=== PATIENT | male | born 1970 | race African-American/Black ===

== ENCOUNTER 2019-07-18 08:49 | Day surgery (SDC) | payer BC ==
[2019-07-18] MEDS ORDERED: NACL 0.9% 1000 ML 1,000 ML ONE (10:03)
[2019-07-18] MEDS ORDERED: VERSED ONE (10:20)
[2019-07-18] MEDS ORDERED: DIPRIVAN 10 MG/ML IV ONE (10:20)
--- NOTE | 2019-07-18 10:20 | History and Physical Report ---
HISTORY OF PRESENT ILLNESS: This is a 48-year-old [place] gentleman with no significant past medical history. He recently had been a smoker until about a year ago. No history of alcohol use. He had been having some atypical chest pain that had prompted him to go to the ER. The patient's cardiac workup in the ER was essentially unremarkable and he was referred for possible endoscopy to see whether he had any associated esophagitis, gastritis or possible peptic ulcer disease. ALLERGIES: He has no known allergies. SOCIAL HISTORY: Significant for smoking until about a year ago. No history of alcohol use. No cardiac issues. No flu shots. MEDICATIONS: Omeprazole. PHYSICAL EXAMINATION: VITAL SIGNS: He is afebrile. Blood pressure 144/86, pulse is 67, height is 5 feet 4 inches, weighs 143 pounds. HEENT: Shows no JVD. LUNGS: Clear to auscultation. CARDIOVASCULAR: Normal. ABDOMEN: Shows some epigastric tenderness. EXTREMITIES: No pedal edema. NEUROLOGIC: The patient is otherwise alert and oriented. ASSESSMENT: Esophagitis and GERD symptoms, possible peptic ulcer disease. PLAN: To continue treatment with PPI and to do an EGD at [facility] on 07/18/2019. JOB# [id number] FLACO/XIAO
--- NOTE | 2019-07-18 10:41 | Anesthesia Day of Surgery ---
Anesthesia Day of Surgery - Day of Surgery Patient Examined: Yes Patient H&P Reviewed: Yes Patient is NPO: Yes Beta Blockers: No
--- NOTE | 2019-07-18 10:42 | Anesthesia Consultation ---
Anesthesia Consult and Med Hx Date of service: 07/18/19 - Airway Anesthetic Teeth Evaluation: Good ROM Head & Neck: Adequate Mental/Hyoid Distance: Adequate Mallampati Class: Class III Intubation Access Assessment: Good - Pulmonary Exam CTA: No - Cardiac Exam Cardiac Exam: RRR - Pre-Operative Health Status ASA Pre-Surgery Classification: ASA1 Proposed Anesthetic Plan: MAC
--- NOTE | 2019-07-18 10:43 | Procedure Note ---
Date of procedure: 07/18/19 Pre-op diagnosis: Dyspepsia/GERD Post-op diagnosis: other (Mild to Moderate Erosive Esophagitis/Gastritis/Duodenitis/Early, Duodenal Ulcer) Procedure: EGD with Biopsy Anesthesia: MINH Surgeon: OLIMPIA FERRARO Estimated blood loss: minimal Pathology: list Specimen disposition: to lab Condition: stable Disposition: same day (Treat with PPI and Baclofen and have patient avoid aspirin and NSAID and anticoagulants for 4 days and follow up in 1 to 2 weeks ([phone]).)
--- NOTE | 2019-07-18 10:53 | Operative Report ---
PROCEDURE: Esophagogastroduodenoscopy with biopsy. INDICATIONS: This is a 48-year-old gentleman, who originally from [place], who had been a smoker until about a year ago, denies any history of alcohol use, who had been having some dyspeptic pain and some atypical chest pain that had prompted him to go to the ER. His cardiac workup was unremarkable. He was suggested that he have an EGD done for further assessment. EGD was done at [facility] with MAC anesthesia after getting informed consent. DESCRIPTION OF PROCEDURE: Instrument was passed through the hypopharynx into the esophagus, which showed mild to moderate distal erosive esophagitis. Stomach showed gastritis and gastric erosion pronounced in the antrum as well as in the gastric body. Photo documentation and biopsy was obtained to make sure that the patient did not have any associated H. pylori gastritis. The pylorus was patent. The duodenum showed duodenitis and beginnings of a duodenal ulcer. There was minimal bleeding from the biopsy sites. No complications associated with the procedure. ASSESSMENT: Dyspepsia, GERD, mild to moderate erosive esophagitis, gastritis, duodenitis and suggestion of an early duodenal ulcer. PLAN: To treat the patient with high dose PPI and also to place the patient on baclofen to reduce his GERD symptoms, which will be asked to take at bedtime and to avoid aspirin and aspirin-related products for the next 4-5 days and follow up in the office in 1-2 weeks' time. The procedure was done in the GI lab with assistance of the GI lab team, which included Gloria KAPOOR as well as Austin rome and with the assistance of MAC anesthesia. [facility]# [id number] FLACO/XIAO
[2019-07-18] MEDS ORDERED: NACL 0.9% 1000 ML 1,000 ML IV SCH (11:00)
[2019-07-18] MEDS ORDERED: WATER FOR IRRIG STERILE IR ONE (12:45)
[2019-07-18 13:33] VITALS: BP 119/73
== END 2019-07-18 08:50 | disposition home or self-care (01) ==
LOC: GIO 08:49
DX: K31.89 Other diseases of stomach and duodenum (principal); B96.81 Helicobacter pylori [H. pylori] as the cause of diseases classified elsewhere; K21.0 Gastro-esophageal reflux disease with esophagitis; K29.70 Gastritis, unspecified, without bleeding; K29.80 Duodenitis without bleeding; Z79.899 Other long term (current) drug therapy
CPT/HCPCS: 43239; 88305; 88342; J2250; J2704; J7030